=== PATIENT | male | born 1945 | race Caucasian/White ===

== ENCOUNTER 2016-12-02 16:34 | Observation (INO) | payer MEDICARE, MEDICAID ==
[2016-12-02 16:34] VITALS: BMI 107.6
[2016-12-02 17:41] LABS: BASO % 0.4 % (0.0-2.0); EOS # 0.2 K/uL (0.0-0.7); EOS % 2.4 % (0.0-4.0); HEMATOCRIT 41.6 % (35.0-51.0); LYMPH # 1.9 K/uL (1.0-4.3); LYMPH % 23.6 % (20.0-40.0); MEAN CELL VOLUME 93.9 fL (80.0-94.0); MEAN CORPUSCULAR HEMOGLOBIN 31.5 pg (27.0-31.0); MEAN CORPUSCULAR HGB CONC 33.5 g/dL (33.0-37.0); MEAN PLATELET VOLUME 8.6 fL (7.2-11.7); MONO # 0.8 K/uL (0.0-0.8); MONO % 9.9 % (0.0-10.0); RED CELL DISTRIBUTION WIDTH 13.4 % (11.5-14.5)
[2016-12-02 17:47] LABS: CHLORIDE 104 mmol/L (98-107)
[2016-12-02 17:49] LABS: INR 1.1; SODIUM 139 mmol/L (132-148)
[2016-12-02 17:51] LABS: ALB/GLOB RATIO 1.3 (1.0-2.1); ALKALINE PHOSPHATASE 76 U/L (38-126); ALT/SGPT 30 U/L (21-72); AST/SGOT 27 U/L (17-59); BILIRUBIN,TOTAL 0.8 mg/dL (0.2-1.3); BLOOD UREA NITROGEN 21 mg/dL (9-20); CARBON DIOXIDE 26 mmol/L (22-30); GFR AFRICAN-AMERICAN > 60; GLUCOSE,RANDOM 192 mg/dL (75-110); TOTAL PROTEIN 7.1 g/dL (6.3-8.3)
[2016-12-02 17:52] LABS: CALCIUM 8.5 mg/dl (8.6-10.4)
--- NOTE | 2016-12-02 18:29 | C.PDOC ---
History Of Present Illness Pt c/o left sided chest pain. Time Seen by Provider: 12/02/16 17:05 Chief Complaint (Nursing): Chest Pain History Per: Patient Onset/Duration Of Symptoms: Hrs (since this morning) Current Symptoms Are (Timing): Still Present Severity: Moderate Quality: "Pain" Associated Symptoms: Diaphoresis Modifying Factors: Other Indicated Below Alleviating Factors: None Nitro Therapy Administered: 3, Per Own Supply, Partial Relief Additional History Per: Prior Records Past Medical History Reviewed: Historical Data, Nursing Documentation, Vital Signs Vital Signs: Last Vital Signs Temp 97.9 F 12/02/16 16:36 Pulse 74 12/02/16 16:36 Resp 20 12/02/16 16:36 BP 110/55 L 12/02/16 16:36 Pulse Ox 96 12/02/16 16:36 - Medical History PMH: Anxiety, Benign Prostatic Hyperplasia, CAD, Depression, Gastritis, HTN, Hypercholesterolemia, Kidney Stones (1969), Chronic Kidney Disease Surgical History: Coronary Stent (5), Endoscopy - [facility] Procedures DRAINAGE OF DESCENDING COLON, ENDO, DIAGN (08/22/16) EXCISION OF STOMACH, ENDO, DIAGN (08/22/16) FLUOROSCOPY OF LEFT HEART USING LOW OSMOLAR CONTRAST (10/24/15) MEASURE OF CARDIAC SAMPL & PRESSURE, L HEART, PERC APPROACH (10/24/15) Family History: States: Unknown Family Hx - Social History Hx Tobacco Use: No Hx Alcohol Use: No Hx Substance Use: No - Immunization History Hx Tetanus Toxoid Vaccination: No Hx Influenza Vaccination: Yes Hx Pneumococcal Vaccination: No Review Of Systems Except As Marked, All Systems Reviewed And Found Negative. Constitutional: Positive for: Sweats. Negative for: Fever, Weakness Cardiovascular: Positive for: Chest Pain Respiratory: Negative for: Hemoptysis Gastrointestinal: Negative for: Nausea, Vomiting, Abdominal Pain Musculoskeletal: Negative for: Neck Pain, Back Pain, Leg Pain Skin: Negative for: Rash Neurological: Negative for: Weakness, Numbness, Seizures, Altered Mental Status Physical Exam - Physical Exam Appears: Non-toxic, No Acute Distress Skin: Normal Color, Warm, Dry, No Rash Head: Atraumatic, Normacephalic Eye(s): bilateral: PERRL, EOMI Neck: Normal ROM, Supple Cardiovascular: Rhythm Regular Respiratory: Normal Breath Sounds, No Accessory Muscle Use Gastrointestinal/Abdominal: Soft, No Tenderness Back: No CVA Tenderness Extremity: Normal ROM, No Pedal Edema, No Calf Tenderness Neurological/Psych: Oriented x3, Normal Motor, Normal Sensation ED Course And Treatment - Laboratory Results Result Diagrams: 12/02/16 17:37 12/02/16 17:37 Lab Interpretation: No Acute Changes ECG: Interpreted By Me, Viewed By Me ECG Rhythm: Sinus Rhythm, Nonspecific Changes ECG Interpretation: Abnormal Interpretation Of ECG: LVH with strain pattern. Rate From EC O2 Sat by Pulse Oximetry: 96 Pulse Ox Interpretation: Normal - Radiology CXR: Interpreted by Me, Viewed By Me CXR Interpretation: Yes: No Acute Disease Reassessment Condition: Improved Progress - Interventions Interventions:: Observation, Oxygen - Data Reviewed Data Reviewed: Lab, Diagnostic imaging, EKG, Old records - Patient Status Patient status: Mostly improved - Continuity of Care Discussed patient case with:: Patient, ED Nurse Disposition Discussed With : Alondra Lino Comment: He accepted pt on his service. Doctor Will See Patient In The: Hospital Counseled Patient/Family Regarding: Studies Performed, Diagnosis - Disposition Disposition: HOSPITALIZED Disposition Time: 18:30 Condition: FAIR - Clinical Impression Clinical Impression: Chest pain
[2016-12-03] MEDS: (Novolog) Insulin Aspart, Recombinant 100 u/ml 10 ml vial SC SCH ×5 (08:21→22:30)
--- NOTE | 2016-12-03 09:21 | RAD ---
PROCEDURE: CHEST RADIOGRAPH, 1 VIEW HISTORY: Chest pain COMPARISON: 08/19/2016. FINDINGS: LUNGS: The lungs are clear. PLEURA: No pneumothorax or pleural fluid seen. CARDIOVASCULAR: Normal. OSSEOUS STRUCTURES: No significant abnormalities. VISUALIZED UPPER ABDOMEN: Normal. OTHER FINDINGS: None. IMPRESSION: No active pulmonary disease.
[2016-12-03] MEDS: Enoxaparin 40 mg Syringe SC SCH (09:34)
--- NOTE | 2016-12-03 09:48 | CP.PCM.PN ---
Subjective - Date & Time of Evaluation Date of Evaluation: 12/03/16 Time of Evaluation: 09:25 - Subjective Subjective: PGY2 Medicine Note - Dr. Lino's service: Patient seen and examined at bedside this AM. Patient is a 71M with PMHx CAD with five stents, HTN, DM II, hyperlipidemia, BPH, and anxiety presented with chest pain last night. Patient says he constantly has this chest pain but it got worse yesterday. He says it is reproducible, left-sided chest pain since he had his first stent put in. Patient says he has been to [facility] 7 times since he was discharged from here in August for the same problem. Patient says he feels the first stent is blocked. I explained to him that his cardiac enzymes are normal so it is likely not his heart and that because it is reproducible it is likely inflammatory pain. Patient was upset that doctors keep blaming his pain on depression, anxiety, muscular pain or gastritis. Patient says he still gets acid reflux which makes this pain worse. Patient denies fever, chills, SOB , cough, abdominal pain, dysuria. Patient says he takes 20 units Novolog at breakfast and lunch, 22 units novolog at dinner and then a sliding scale of levemir at night time before bed. PMD: Dr Emiliano Lino PMHx, CAD with [address] Wills, HTN, DMII, hyperlipidemia, BPH, legally blind PSHx: hernia repair, stent placement Family hx: father of [place] in 70's Mother had DM, other members at [facility] Social hx: past smoker of 5 years, no ETOH or drug use, lives alone. Allergies: morphine, Lexapro Objective - Vital Signs/Intake and Output Vital Signs (last 24 hours): Temp Pulse Resp BP Pulse Ox 98.9 F 76 18 159/81 H 97 12/03/16 07:52 12/03/16 07:52 12/03/16 07:52 12/03/16 09:36 12/03/16 07:52 Intake and Output: 12/03/16 12/03/16 06:59 18:59 Intake Total 250 Balance 250 - Medications Medications: Current Medications Aspirin (Aspirin Chewable) 81 mg PO DAILY [facility] Last Admin: 12/03/16 09:35 Dose: 81 mg Clopidogrel Bisulfate (Plavix) 75 mg PO DAILY [facility] Last Admin: 12/03/16 09:34 Dose: 75 mg Enalapril Maleate (Vasotec) 20 mg PO DAILY [facility] Last Admin: 12/03/16 09:36 Dose: 20 mg Enoxaparin Sodium (Lovenox) 40 mg SC DAILY [facility] Last Admin: 12/03/16 09:34 Dose: 40 mg Finasteride (Proscar) 5 mg PO DAILY [facility] Last Admin: 12/03/16 09:35 Dose: 5 mg Insulin Aspart (Novolog) 0 unit SC ACHS [facility] PRN Reason: Protocol Last Admin: 12/03/16 08:21 Dose: 3 unit Insulin Aspart (Novolog) 20 unit SC ACBL [facility] Insulin Aspart (Novolog) 22 unit SC ACD [facility] Insulin Detemir (Levemir) 0 unit SC HS [facility] PRN Reason: Protocol Isosorbide Mononitrate (Imdur) 30 mg PO DAILY [facility] Last Admin: 12/03/16 09:35 Dose: 30 mg Metoprolol Tartrate (Lopressor) 25 mg PO Q12 [facility] Last Admin: 12/03/16 09:36 Dose: 25 mg Nitroglycerin (Nitrostat Sl Tab) 0.4 mg SL PRN PRN PRN Reason: angina Rosuvastatin Calcium (Crestor) 10 mg PO [facility] Last Admin: 12/03/16 00:47 Dose: 10 mg Zolpidem Tartrate (Ambien) 5 mg PO [facility] Last Admin: 12/03/16 00:47 Dose: 5 mg - Labs Labs: PT 12.5 SECONDS (9.7-12.2) H 12/02/16 17:37 INR 1.1 12/02/16 17:37 APTT 33 SECONDS (21-34) 12/02/16 17:37 - Constitutional Appears: Non-toxic, No Acute Distress - Head Exam Head Exam: NORMAL INSPECTION - Eye Exam Eye Exam: EOMI - ENT Exam ENT Exam: Mucous Membranes Moist - Respiratory Exam Respiratory Exam: Clear to Ausculation Bilateral, NORMAL BREATHING PATTERN. absent: Rales, Rhonchi, Wheezes - Cardiovascular Exam Cardiovascular Exam: REGULAR RHYTHM, +S1, +S2. absent: Gallop, Rubs, Murmur - GI/Abdominal Exam GI & Abdominal Exam: Soft, Normal Bowel Sounds. absent: Tenderness - Extremities Exam Extremities Exam: absent: Pedal Edema - Neurological Exam Neurological Exam: Alert, Awake, Oriented x3 - Psychiatric Exam Psychiatric exam: Anxious - Skin Skin Exam: Normal Color, Warm Assessment and Plan - Assessment and Plan (Free Text) Assessment: Chest pressure/pain Initial ROMIs negative x 2 Echo performed 08/19/16 showed moderately impaired left ventricular systolic function, mild to moderate hypokinesis in anteroseptal wall compatible with CAD , grade I abnormal relaxation pattern, elevated left atrial pressure and normal right systolic function. (please see full report) Previous dissection study showed no evidence of aortic aneurysm or PE. Nuclear stress test 08/21/16 showed fixed anteroseptal defect with no ischemia per prior charts EKG 12/02/16 - NSR at 65 bpm with LVH and repolarization abnormality CXR 12/02/16 - no acute pulmonary disease Cardiology consulted, Dr. Hollis, f/u recs Patient on telemetry Nitro Sl PRN for chest pain Toradol 30mg IVP once Ibuprofen 600mg PO TID F/U DELFINA CAD Continue Aspirin PO 81 mg daily Continue Lipitor 10mg PO daily Continue Plavix 75 mg PO daily Continue Crestor 10mg PO HS HTN Continue Lopressor 25 Mg PO BID and Enalapril 20 mg PO BID and Imdur 30mg PO daily [facility] Continue home dose of Levemir 40 U HS regular accuchecks insulin sliding scale protocol Anxiety Continue home Remeron 7.5 mg PO HS Continue home Ambien 5 mg PO HS Continue home Xanax 0.5 mg PO BID BPH Contine home Proscar 5mg PO daily Prophylactic measures Lovenox 40mg SC daily Protonix 40mg PO daily Management per Dr. Lino
--- NOTE | 2016-12-03 13:09 | HP ---
The patient is a 71-year-old man admitted to the hospital with chief complaint of weakness, fatigue, tiredness, chest pain, and not responding to nitroglycerin. The patient came to the Emergency Room, advised admission. The patient had history of coronary artery disease status post stent. The patien t has history of diabetes. The patient uses Levemir, NovoLog, nitroglycerin, Imdur. PHYSICAL EXAMINATION: GENERAL: Awake, alert, oriented. VITAL SIGNS: Temperature is 98, pulse 90. HEENT: Within normal limits. NECK: Supple. CHEST: Symmetrical. HEART: Regular. ABDOMEN: Soft. EXTREMITIES: No edema. The patient suffers from acute coronary syndrome. Place on bed rest, supportive care. Alondra Moreira MD cc: [id number] TT: 12/03/2016 11:22:42 12/03/2016 12:07:37
[2016-12-03] MEDS ORDERED: (Novolog) Insulin Aspart, Recombinant 100 u/ml 10 ml vial SC SCH (16:30)
[2016-12-03 17:34] VITALS: RESP 20
[2016-12-03] MEDS ORDERED: Insulin Detemir 100 units/ml Vial (Levemir) SC SCH ×2 (22:00)
[2016-12-04] MEDS: (Novolog) Insulin Aspart, Recombinant 100 u/ml 10 ml vial SC SCH ×4 (07:55→12:19)
[2016-12-04 08:54] VITALS: PULSE 74; TEMP 97.8; O2SAT 96
--- NOTE | 2016-12-04 10:09 | CP.PCM.CON ---
History of Present Illness - History of Present Illness History of Present Illness: The patient is a 71 year old man, known CAD. Pt had coronary stents by Dr Deluna, and last year admitted to [facility] 12/05. A nuclear stress was done that did not result in intervention. Pt had chest pain again 04/06: pt had two coronary stents in LCX branches. The patient was admitted her 09/05 with chest pain. A nuclear stress revealed only a fixed defect. CT and EGD revealed esophagitis. Pt was sitting at home (he lives alone) had chest pain, left sided, lasted three hours. He took several NTG without relief. Chest pain continued in the ambulance, and here at the hospital, and lasted for several hours. Chest pain resolved after he lay down and relaxed. Now he has a headache. Pt lives alone, has anxiety. One TNI is negative. ECg shows nsr mild non specific st changes. Review of Systems - Review of Systems All systems: reviewed and no additional remarkable complaints except (as above. otherwise negative) Past Patient History - Infectious Disease Hx of Infectious Diseases: None - Past Medical History & Family History Past Medical History?: Yes - Past Social History Smoking Status: Never Smoked - CARDIAC Hx Cardiac Disorders: Yes Hx Angina: Yes Hx Congestive Heart Failure: Yes Hx Heart Attack: Yes (x4) Hx Hypercholesterolemia: Yes Hx Hypertension: Yes - PULMONARY Hx Respiratory Disorders: No - NEUROLOGICAL Hx Neurological Disorder: Yes Hx Dizziness: Yes - HEENT 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 - RENAL Hx Chronic Kidney Disease: Yes Hx Kidney Stones: Yes (1968) - ENDOCRINE/METABOLIC Hx Endocrine Disorders: Yes Hx Diabetes Mellitus Type 2: Yes - HEMATOLOGICAL/ONCOLOGICAL Hx Blood Disorders: No - INTEGUMENTARY Hx Dermatological Problems: No - MUSCULOSKELETAL/RHEUMATOLOGICAL Hx Falls: No - GASTROINTESTINAL Hx Gastrointestinal Disorders: Yes Hx Gastritis: Yes Hx Ulcer: Yes - GENITOURINARY/GYNECOLOGICAL Hx Genitourinary Disorders: Yes Hx Prostate Problems: Yes - PSYCHIATRIC Hx Substance Use: No - SURGICAL HISTORY Hx Surgeries: Yes Hx Coronary Stent: Yes (5) Hx Herniorrhaphy: Yes (rt side) - ANESTHESIA Hx Anesthesia: Yes Hx Anesthesia Reactions: No Hx Malignant Hyperthermia: No Meds Allergies/Adverse Reactions: Allergies Allergy/AdvReac Type Severity Reaction Status Date / Time morphine Allergy Verified 12/02/16 16:39 escitalopram oxalate AdvReac Verified 12/02/16 16:39 [From Lexapro] - Medications Medications: Current Medications Aspirin (Aspirin Chewable) 81 mg PO DAILY [facility] Last Admin: 12/03/16 09:35 Dose: 81 mg Clopidogrel Bisulfate (Plavix) 75 mg PO DAILY [facility] Last Admin: 12/03/16 09:34 Dose: 75 mg Enalapril Maleate (Vasotec) 20 mg PO DAILY [facility] Last Admin: 12/03/16 09:36 Dose: 20 mg Enoxaparin Sodium (Lovenox) 40 mg SC DAILY [facility] Last Admin: 12/03/16 09:34 Dose: 40 mg Famotidine (Pepcid) 20 mg IVP Q12 [facility] Last Admin: 12/03/16 21:33 Dose: 20 mg Finasteride (Proscar) 5 mg PO DAILY [facility] Last Admin: 12/03/16 09:35 Dose: 5 mg Ibuprofen (Motrin Tab) 600 mg PO TID [facility] Last Admin: 12/03/16 21:33 Dose: 600 mg Insulin Aspart (Novolog) 0 unit SC ACHS [facility] PRN Reason: Protocol Last Admin: 12/04/16 07:55 Dose: 1 unit Insulin Aspart (Novolog) 20 unit SC ACBL [facility] Last Admin: 12/04/16 07:56 Dose: 20 unit Insulin Aspart (Novolog) 22 unit SC ACD [facility] Last Admin: 12/03/16 17:57 Dose: 22 unit Insulin Detemir (Levemir) 20 unit SC HS [facility] Last Admin: 12/03/16 21:47 Dose: 20 unit Isosorbide Mononitrate (Imdur) 30 mg PO DAILY [facility] Last Admin: 12/03/16 09:35 Dose: 30 mg Metoprolol Tartrate (Lopressor) 25 mg PO Q12 [facility] Last Admin: 12/03/16 21:39 Dose: 25 mg Nitroglycerin (Nitrostat Sl Tab) 0.4 mg SL PRN PRN PRN Reason: angina Rosuvastatin Calcium (Crestor) 10 mg PO HS [facility] Last Admin: 12/03/16 21:32 Dose: 10 mg Zolpidem Tartrate (Ambien) 5 mg PO HS [facility] Last Admin: 12/04/16 00:37 Dose: Not Given Physical Exam - Constitutional Appears: Well - Head Exam Head Exam: ATRAUMATIC - Eye Exam Eye Exam: EOMI - ENT Exam ENT Exam: Mucous Membranes Moist - Neck Exam Neck exam: Positive for: Normal Inspection - Respiratory Exam Respiratory Exam: Clear to Auscultation Bilateral - Cardiovascular Exam Cardiovascular Exam: REGULAR RHYTHM - GI/Abdominal Exam GI & Abdominal Exam: Normal Bowel Sounds - Rectal Exam Rectal Exam: NORMAL INSPECTION - Exam External exam: NORMAL EXTERNAL EXAM - Extremities Exam Extremities exam: Positive for: normal inspection - Back Exam Back exam: NORMAL INSPECTION - Neurological Exam Neurological exam: Alert, CN II-XII Intact, Oriented x3, Reflexes Normal - Psychiatric Exam Psychiatric exam: Normal Affect - Skin Skin Exam: Normal Color Results - Vital Signs Recent Vital Signs: Last Vital Signs Temp 97.8 F 12/04/16 08:52 Pulse 74 12/04/16 08:52 Resp 20 12/04/16 08:52 BP 134/54 L 12/04/16 08:52 Pulse Ox 96 12/04/16 08:52 - Labs Result Diagrams: 12/02/16 17:37 12/02/16 17:37 Labs: Laboratory Results - last 24 hr 12/03/16 12/03/16 12/03/16 09:25 11:42 16:36 POC Glucose (mg/dL) 329 H 166 H Troponin I, Quant < 0.0120 12/03/16 12/04/16 21:41 06:21 POC Glucose (mg/dL) 146 H 177 H Troponin I, Quant - EKG Data EKG Interpreted by: Myself (as above in hpi) Assessment & Plan - Assessment and Plan (Free Text) Assessment: 1. Although pt has cad, symptoms again are atypical, occrring at rest not nitro responseive and lasting over several hours. Will repeat tni. If negative, no intervention is advised at this time 2. As pt has esophagitis, no nsaids are recommended.
[2016-12-04] MEDS: Enoxaparin 40 mg Syringe SC SCH (10:41)
[2016-12-04 10:46] VITALS: BP 182/90
--- NOTE | 2016-12-04 11:06 | CP.PCM.PN ---
Subjective - Date & Time of Evaluation Date of Evaluation: 12/04/16 Time of Evaluation: 09:45 - Subjective Subjective: PGY2 Medicine Note - Dr. Lino's service: Patient seen and examined at bedside this AM. Patient says the chest pain is gone but he had a headache last night associated with dizziness. Patient denies fever, chills, chest pain, SOB, nausea, vomiting. Patient is out of bed walking around without an issue. Objective - Vital Signs/Intake and Output Vital Signs (last 24 hours): Temp Pulse Resp BP Pulse Ox 97.8 F 74 20 182/90 H 96 12/04/16 08:52 12/04/16 08:52 12/04/16 08:52 12/04/16 10:45 12/04/16 08:52 - Medications Medications: Current Medications Aspirin (Aspirin Chewable) 81 mg PO DAILY [facility] Last Admin: 12/04/16 10:42 Dose: 81 mg Clopidogrel Bisulfate (Plavix) 75 mg PO DAILY [facility] Last Admin: 12/04/16 10:42 Dose: 75 mg Enalapril Maleate (Vasotec) 20 mg PO DAILY [facility] Last Admin: 12/04/16 10:45 Dose: 20 mg Enoxaparin Sodium (Lovenox) 40 mg SC DAILY [facility] Last Admin: 12/04/16 10:41 Dose: 40 mg Famotidine (Pepcid) 20 mg IVP Q12 [facility] Last Admin: 12/04/16 10:42 Dose: 20 mg Finasteride (Proscar) 5 mg PO DAILY [facility] Last Admin: 12/04/16 10:42 Dose: 5 mg Insulin Aspart (Novolog) 0 unit SC ACHS [facility] PRN Reason: Protocol Last Admin: 12/04/16 07:55 Dose: 1 unit Insulin Aspart (Novolog) 20 unit SC ACBL [facility] Last Admin: 12/04/16 07:56 Dose: 20 unit Insulin Aspart (Novolog) 22 unit SC ACD [facility] Last Admin: 12/03/16 17:57 Dose: 22 unit Insulin Detemir (Levemir) 20 unit SC HS [facility] Last Admin: 12/03/16 21:47 Dose: 20 unit Isosorbide Mononitrate (Imdur) 30 mg PO DAILY [facility] Last Admin: 12/04/16 10:41 Dose: 30 mg Metoprolol Tartrate (Lopressor) 25 mg PO Q12 [facility] Last Admin: 12/04/16 10:45 Dose: 25 mg Nitroglycerin (Nitrostat Sl Tab) 0.4 mg SL PRN PRN PRN Reason: angina Rosuvastatin Calcium (Crestor) 10 mg PO [facility] Last Admin: 12/03/16 21:32 Dose: 10 mg Zolpidem Tartrate (Ambien) 5 mg PO [facility] Last Admin: 12/04/16 00:37 Dose: Not Given - Labs Labs: PT 12.5 SECONDS (9.7-12.2) H 12/02/16 17:37 INR 1.1 12/02/16 17:37 APTT 33 SECONDS (21-34) 12/02/16 17:37 - Constitutional Appears: Non-toxic, No Acute Distress - Head Exam Head Exam: NORMAL INSPECTION - Eye Exam Eye Exam: EOMI - ENT Exam ENT Exam: Mucous Membranes Moist - Respiratory Exam Respiratory Exam: Clear to Ausculation Bilateral, NORMAL BREATHING PATTERN. absent: Decreased Breath Sounds, Rhonchi, Wheezes - Cardiovascular Exam Cardiovascular Exam: REGULAR RHYTHM, +S1, +S2. absent: Gallop, Rubs, Murmur - GI/Abdominal Exam GI & Abdominal Exam: Soft, Normal Bowel Sounds. absent: Tenderness - Extremities Exam Extremities Exam: absent: Pedal Edema - Neurological Exam Neurological Exam: Alert, Awake, Oriented x3 - Psychiatric Exam Psychiatric exam: Normal Affect, Normal Mood - Skin Skin Exam: Normal Color, Warm Assessment and Plan - Assessment and Plan (Free Text) Assessment: Chest pressure/pain Initial ROMIs negative x 3 Echo performed 08/19/16 showed moderately impaired left ventricular systolic function, mild to moderate hypokinesis in anteroseptal wall compatible with CAD , grade I abnormal relaxation pattern, elevated left atrial pressure and normal right systolic function. (please see full report) Previous dissection study showed no evidence of aortic aneurysm or PE. Nuclear stress test 08/21/16 showed fixed anteroseptal defect with no ischemia per prior charts EKG 12/02/16 - NSR at 65 bpm with LVH and repolarization abnormality CXR 12/02/16 - no acute pulmonary disease Cardiology consulted, Dr. Hollis, f/u recs Patient on telemetry Nitro Sl PRN for chest pain Spoke with Dr. Wills about the patient at 11:05am. Dr. Wills says patient is okay to go home. However, Dr. Wills and his group no longer take [employer] which is the patient's insurance. 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 Patient will be given multiple assistant teacher referrals on discharge today so he can see if any of them take [employer]. CAD Continue Aspirin PO 81 mg daily Continue Lipitor 10mg PO daily Continue Plavix 75 mg PO daily Continue Crestor 10mg PO HS HTN Continue Lopressor 25 Mg PO BID and Enalapril 20 mg PO BID and Imdur 30mg PO daily DM Continue home dose of Levemir 40 U HS regular accuchecks insulin sliding scale protocol Anxiety Continue home Remeron 7.5 mg PO HS Continue home Ambien 5 mg PO HS Continue home Xanax 0.5 mg PO BID BPH Contine home Proscar 5mg PO daily Prophylactic measures Lovenox 40mg SC daily Protonix 40mg PO daily Management per Dr. Lino
[2016-12-04 11:42] LABS: BASO % 0.3 % (0.0-2.0); EOS # 0.2 K/uL (0.0-0.7); HEMATOCRIT 42.4 % (35.0-51.0); LYMPH # 1.8 K/uL (1.0-4.3); LYMPH % 24.2 % (20.0-40.0); MEAN CELL VOLUME 94.6 fL (80.0-94.0); MEAN CORPUSCULAR HEMOGLOBIN 32.3 pg (27.0-31.0); MEAN CORPUSCULAR HGB CONC 34.1 g/dL (33.0-37.0); MEAN PLATELET VOLUME 9.2 fL (7.2-11.7); MONO # 0.7 K/uL (0.0-0.8); MONO % 8.6 % (0.0-10.0); RED CELL DISTRIBUTION WIDTH 13.5 % (11.5-14.5); WHITE BLOOD COUNT 7.6 K/uL (4.8-10.8)
[2016-12-04 12:04] LABS: CHLORIDE 100 mmol/L (98-107); POTASSIUM 3.7 mmol/L (3.6-5.2); SODIUM 137 mmol/L (132-148)
[2016-12-04 12:06] LABS: BILIRUBIN,TOTAL 0.9 mg/dL (0.2-1.3); GFR AFRICAN-AMERICAN > 60
[2016-12-04 12:07] LABS: ALB/GLOB RATIO 1.6 (1.0-2.1); ALKALINE PHOSPHATASE 100 U/L (38-126); ALT/SGPT 35 U/L (21-72); AST/SGOT 28 U/L (17-59); BLOOD UREA NITROGEN 26 mg/dL (9-20); CALCIUM 8.9 mg/dl (8.6-10.4); CARBON DIOXIDE 23 mmol/L (22-30); GLUCOSE,RANDOM 270 mg/dL (75-110); TOTAL PROTEIN 7.7 g/dL (6.3-8.3)
== END 2016-12-04 16:00 | disposition home or self-care (01) ==
LOC: C.ER 16:34 → C.9E 18:30 → C.6T 20:03
PROVIDERS: ADMIT Internal Medicine Pulmonary Disease; ATTEND Internal Medicine Pulmonary Disease
DX: I25.10 Atherosclerotic heart disease of native coronary artery without angina pectoris (principal); I25.2 Old myocardial infarction; I50.9 Heart failure, unspecified; I13.0 Hypertensive heart and chronic kidney disease with heart failure and stage 1 through stage 4 chronic kidney disease, or unspecified chronic kidney disease; N40.0 Benign prostatic hyperplasia without lower urinary tract symptoms; Z95.5 Presence of coronary angioplasty implant and graft; H54.8 Legal blindness, as defined in USA; E78.5 Hyperlipidemia, unspecified; E11.22 Type 2 diabetes mellitus with diabetic chronic kidney disease; F41.9 Anxiety disorder, unspecified
CPT/HCPCS: 36415; 71010; 80053; 82948; 83880; 84484; 85025; 85610; 85730; 96374; 99285; G0378; J1650

== ENCOUNTER 2016-12-07 14:30 | Inpatient (IN) | payer MEDICARE, MEDICAID ==
[2016-12-07 14:31] VITALS: BMI 107.6
[2016-12-07] MEDS ORDERED: Heparin25000 units/250ml 1/2NS 250 ML IV STA (14:47)
--- NOTE | 2016-12-07 14:52 | C.PDOC ---
Time Seen by Provider: 12/07/16 14:44 Chief Complaint (Nursing): Chest Pain History Per: Patient Onset/Duration Of Symptoms: Hrs (2) Current Symptoms Are (Timing): Still Present Severity: Moderate Quality: Pressure Associated Symptoms: Diaphoresis Modifying Factors: Other Indicated Below Alleviating Factors: None Nitro Therapy Administered: 3, Per EMS, Per Own Supply, Partial Relief Additional History Per: Prior Records Past Medical History Reviewed: Historical Data, Nursing Documentation, Vital Signs Vital Signs: Last Vital Signs Temp 98.2 F 12/07/16 14:41 Pulse 67 12/07/16 14:41 Resp 20 12/07/16 14:41 BP 137/77 12/07/16 14:41 Pulse Ox 97 12/07/16 14:41 - Medical History PMH: Anxiety, Benign Prostatic Hyperplasia, CAD, CHF, Depression, Gastritis, HTN , Hypercholesterolemia, Kidney Stones (1969), Chronic Kidney Disease Surgical History: Coronary Stent (5), Endoscopy - [facility] Procedures DRAINAGE OF DESCENDING COLON, ENDO, DIAGN (08/22/16) EXCISION OF STOMACH, ENDO, DIAGN (08/22/16) FLUOROSCOPY OF LEFT HEART USING LOW OSMOLAR CONTRAST (10/24/15) MEASURE OF CARDIAC SAMPL & PRESSURE, L HEART, PERC APPROACH (10/24/15) Family History: States: Unknown Family Hx - Social History Hx Tobacco Use: No Hx Alcohol Use: No Hx Substance Use: No - Immunization History Hx Tetanus Toxoid Vaccination: No Hx Influenza Vaccination: Yes Hx Pneumococcal Vaccination: No Review Of Systems Except As Marked, All Systems Reviewed And Found Negative. Constitutional: Negative for: Fever Cardiovascular: Positive for: Chest Pain Respiratory: Negative for: Hemoptysis Gastrointestinal: Negative for: Vomiting, Abdominal Pain Musculoskeletal: Negative for: Neck Pain Neurological: Negative for: Weakness, Numbness, Seizures, Altered Mental Status Physical Exam - Physical Exam Appears: In Acute Distress Skin: Warm, Dry, Diaphoretic Head: Atraumatic, Normacephalic Eye(s): bilateral: PERRL, EOMI Neck: Normal ROM, Supple Cardiovascular: Rhythm Regular Respiratory: Normal Breath Sounds, No Accessory Muscle Use Gastrointestinal/Abdominal: Soft, No Tenderness Extremity: Normal ROM Neurological/Psych: Oriented x3, Normal Motor, Normal Sensation ED Course And Treatment ECG: Interpreted By Me, Viewed By Me ECG Rhythm: Sinus Rhythm, ST/T Changes (ST elevation in V1-V2. ST depression in interior/lateral leads), Nonspecific Changes ECG Interpretation: Abnormal Interpretation Of ECG: Q waves in septal leads. Rate From EC O2 Sat by Pulse Oximetry: 97 Pulse Ox Interpretation: Normal Progress Note: Code Heart was activated by me upon completion of the EKG. Disposition Discussed With Dr.: Jacquie Ríos Comment: He is coming in for the Code Heart. He requested given pt 180mg of Brillinta po and starting Heparin bolus and drip. Doctor Will See Patient In The: Hospital Counseled Patient/Family Regarding: Studies Performed, Diagnosis - Disposition Disposition: HOSPITALIZED Disposition Time: 14:54 Condition: SERIOUS - Clinical Impression Clinical Impression: STEMI (ST elevation myocardial infarction)
--- NOTE | 2016-12-07 15:01 | RAD ---
PROCEDURE: CHEST RADIOGRAPH, 1 VIEW HISTORY: Chest pain COMPARISON: 12/02/2016 FINDINGS: LUNGS: The lungs are clear. PLEURA: No pneumothorax or pleural fluid seen. CARDIOVASCULAR: Normal. OSSEOUS STRUCTURES: No significant abnormalities. VISUALIZED UPPER ABDOMEN: Normal. OTHER FINDINGS: None. IMPRESSION: No acute findings.
[2016-12-07 15:07] LABS: BASO % 0.4 % (0.0-2.0); EOS # 0.2 K/uL (0.0-0.7); EOS % 1.6 % (0.0-4.0); HEMATOCRIT 42.9 % (35.0-51.0); LYMPH # 1.7 K/uL (1.0-4.3); LYMPH % 17.4 % (20.0-40.0); MEAN CELL VOLUME 94.6 fL (80.0-94.0); MEAN CORPUSCULAR HEMOGLOBIN 31.7 pg (27.0-31.0); MEAN CORPUSCULAR HGB CONC 33.5 g/dL (33.0-37.0); MONO # 0.7 K/uL (0.0-0.8); MONO % 7.4 % (0.0-10.0); RED CELL DISTRIBUTION WIDTH 13.7 % (11.5-14.5); WHITE BLOOD COUNT 9.6 K/uL (4.8-10.8)
[2016-12-07 15:10] LABS: INR 1.1
[2016-12-07 15:12] LABS: CHLORIDE 105 mmol/L (98-107); POTASSIUM 3.9 mmol/L (3.6-5.2); SODIUM 141 mmol/L (132-148)
[2016-12-07 15:14] LABS: GFR AFRICAN-AMERICAN > 60
[2016-12-07 15:15] LABS: ALB/GLOB RATIO 1.4 (1.0-2.1); ALKALINE PHOSPHATASE 80 U/L (38-126); ALT/SGPT 28 U/L (21-72); AST/SGOT 23 U/L (17-59); BILIRUBIN,TOTAL 0.7 mg/dL (0.2-1.3); BLOOD UREA NITROGEN 21 mg/dL (9-20); CALCIUM 8.5 mg/dl (8.6-10.4); CARBON DIOXIDE 24 mmol/L (22-30); GLUCOSE,RANDOM 194 mg/dL (75-110); TOTAL PROTEIN 6.9 g/dL (6.3-8.3)
[2016-12-07] MEDS ORDERED: Heparin25000 units/250ml 1/2NS 25,000 UNITS/250 ML BAG IV STA (15:15)
[2016-12-07] MEDS ORDERED: Heparin 1,000 Units/500 ml NS IV ONE (15:15)
[2016-12-07] MEDS ORDERED: Midazolam 2 MG/2 ML VIAL ONE ×2 (15:33→15:36)
--- NOTE | 2016-12-07 15:54 | CP.PCM.CON ---
History of Present Illness - History of Present Illness History of Present Illness: Patient is a 71 year old male with PMH HTN, DM, CAD s/p multivessel PCI who presents with angina. The patient describes the onset of substernal chesrt pressure which occurred at rest. He states symptoms began suddenly and became worse. He was diaphoretic. The EKG revealed NSR with anteroseptal ST segment abnormalities consistent with myocardial infarction. Code heart was activated. Review of Systems - Constitutional Constitutional: absent: As Per HPI, Anorexia, Chills, Daytime Sleepiness, Excessive Sweating, Fatigue, Fever, Frequent Falls, Headache, Increased Appetite , Lethargy, Malaise, Night Sweats, Snoring, Sleep Apnea, Weight Gain, Weight Loss, Weakness, Other - EENT Eyes: absent: As Per HPI, Blind Spots, Blurred Vision, Change in Vision, Decreased Night Vision, Diplopia, Discharge, Dry Eye, Exophthalmos, Floaters, Irritation, Itchy Eyes, Loss of Peripheral Vision, Pain, Photophobia, Requires Corrective Lenses, Sees Flashes, Spots in Vision, Tunnel Vision, Other Visual Disturbances, Loss of Vision, Other Ears: absent: As Per HPI, Decreased Hearing, Ear Discharge, Ear Pain, Tinnitus, Abnormal Hearing, Disequilibrium, Dizziness, Other Nose/Mouth/Throat: absent: As Per HPI, Epistaxis, Nasal Congestion, Nasal Discharge, Nasal Obstruction, Nasal Trauma, Nose Pain, Post Nasal Drip, Sinus Pain, Sinus Pressure, Bleeding Gums, Change in Voice, Dental Pain, Dry Mouth, Dysphagia, Halitosis, Hoarsness, Lip Swelling, Mouth Lesions, Mouth Pain, Odynophagia, Sore Throat, Throat Swelling, Tongue Swelling, Facial Pain, Neck Pain, Neck Mass, Other - Cardiovascular Cardiovascular: Chest Pain at Rest, Diaphoresis, Dyspnea - Respiratory Respiratory: Dyspnea - Gastrointestinal Gastrointestinal: absent: As Per HPI, Abdominal Pain, Belching, Bloating, Change in Bowel Habits, Change in Stool Character, Coffee Ground Emesis, Constipation, Cramping, Diarrhea, Dyspepsia, Dysphagia, Early Satiety, Excessive Flatus, Fecal Incontinence, Heartburn, Hematemesis, Hematochezia, Loose Stools, Melena, Nausea, Odynophagia, Temesmus, Vomiting, Other - Genitourinary Genitourinary: absent: As Per HPI, Change in Urinary Stream, Difficulty Urinating, Dysuria, Flank Pain, Hematuria, Pyuria, Nocturia, Urinary Incontinence, Urinary Frequency, Urinary Hesitance, Urinary Urgency, Voiding Freq/Small Amts, Freq UTI, Hx Renal/Bladder Calculi, Hx /Renal Surgery, Bladder Distension, Other - Musculoskeletal Musculoskeletal: absent: As Per HPI, Abnormal Gait, Arthralgias, Atrophy, Back Pain, Deformity, Joint Swelling, Limited Range of Motion, Loss of Height, Muscle Cramps, Muscle Weakness, Myalgias, Neck Pain, Numbness, Radiating Pain into Limb, Stiffness, Tingling, Other - Integumentary Integumentary: absent: As Per HPI, Acne, Alopecia, Bleeding Lesions, Change in Hair, Change in Nails, Change in Pigmentation, Changing Lesions, Dry Skin, Erythema, Furuncle, Hirsutism, Lesions, New Lesions, Non-Healing Lesions, Photosensitivity, Pruritus, Rash, Skin Pain, Skin Ulcer, Sores, Striae, Swelling , Unusual Bruising, Wounds, Jaundice, Other - Neurological Neurological: absent: As Per HPI, Abnormal Gait, Abnormal Hearing, Abnormal Movements, Abnormal Speech, Behavioral Changes, Burning Sensations, Confusion, Convulsions, Disequilibrium, Dizziness, Numbness, Focal Weakness, Frequent Falls , Headaches, Lack of Coordination, Loss of Vision, Memory Loss, Paresthesias, Radicular Pain, Restless Legs, Sensory Deficit, Syncope, Tingling, Tremor, Vertigo, Weakness, Other Visual Disturbances, Other - Psychiatric Psychiatric: absent: As Per HPI, Abnormal Sleep Pattern, Anhedonia, Anxiety, Auditory Hallucinations, Behavioral Changes, Change in Appetite, Change in Libido, Confusion, Depression, Difficulty Concentrating, Hallucinations, Homicidal Ideation, Hopelessness, Irritability, Memory Loss, Mood Swings, Panic Attacks, Paranoia, Suicidal Ideation, Visual Hallucinations, Tactile Hallucinations, Other - Endocrine Endocrine: absent: As Per HPI, Change in Body Appearance, Change in Libido, Cold Intolorance, Deepening of Voice, Excessive Sweating, Fatigue, Flushing, Heat Intolorance, Increase in Ring/Shoe/Hat Size, Palpitations, Polydipsia, Polyphagia, Polyuria, Other - Hematologic/Lymphatic Hematologic: absent: As Per HPI, Easy Bleeding, Easy Bruising, Lymphadenopathy, Other Past Patient History - Infectious Disease Hx of Infectious Diseases: None - Past Medical History & Family History Past Medical History?: Yes - Past Social History Smoking Status: Never Smoked - CARDIAC Hx Congestive Heart Failure: Yes Hx Hypercholesterolemia: Yes Hx Hypertension: Yes - PULMONARY Hx Respiratory Disorders: No - NEUROLOGICAL Hx Neurological Disorder: Yes Hx Dizziness: Yes - HEENT 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 - RENAL Hx Chronic Kidney Disease: Yes Hx Kidney Stones: Yes (1968) - ENDOCRINE/METABOLIC Hx Endocrine Disorders: Yes Hx Diabetes Mellitus Type 2: Yes - HEMATOLOGICAL/ONCOLOGICAL Hx Blood Disorders: No - INTEGUMENTARY Hx Dermatological Problems: No - MUSCULOSKELETAL/RHEUMATOLOGICAL Hx Falls: No - GASTROINTESTINAL Hx Gastritis: Yes - GENITOURINARY/GYNECOLOGICAL Hx Genitourinary Disorders: Yes Hx Prostate Problems: Yes - PSYCHIATRIC Hx Anxiety: Yes Hx Depression: Yes Hx Substance Use: No - SURGICAL HISTORY Hx Coronary Stent: Yes (5) - ANESTHESIA Hx Anesthesia: Yes Hx Anesthesia Reactions: No Hx Malignant Hyperthermia: No Meds Allergies/Adverse Reactions: Allergies Allergy/AdvReac Type Severity Reaction Status Date / Time morphine Allergy Verified 12/02/16 16:39 escitalopram oxalate AdvReac Verified 12/07/16 14:47 [From Lexapro] - Medications Medications: Current Medications Acetaminophen (Tylenol 325mg Tab) 650 mg PO Q6 PRN PRN Reason: pain Clopidogrel Bisulfate (Plavix) 75 mg PO DAILY [facility] Heparin Sodium/Sodium Chloride (Heparin 75807 Units/250ml 1/2 Normal Saline) 25 ,000 units in 250 mls @ 10 mls/hr IV STAT STA PRN Reason: Protocol Stop: 12/08/16 16:14 Sodium Chloride (Sodium Chloride 0.9%) 1,000 mls @ 100 mls/hr IV .Q10H [facility] Stop: 12/07/16 19:00 Losartan Potassium (Cozaar) 25 mg PO DAILY [facility] Metoprolol Succinate (Toprol Xl) 25 mg PO DAILY [facility] Physical Exam - Constitutional Appears: Non-toxic - Head Exam Head Exam: NORMAL INSPECTION - Eye Exam Eye Exam: Normal appearance - ENT Exam ENT Exam: Mucous Membranes Moist - Neck Exam Neck exam: Positive for: Full Rom - Respiratory Exam Respiratory Exam: NORMAL BREATHING PATTERN - Cardiovascular Exam Cardiovascular Exam: REGULAR RHYTHM - GI/Abdominal Exam GI & Abdominal Exam: Normal Bowel Sounds - Rectal Exam Rectal Exam: Deferred - Extremities Exam Extremities exam: Negative for: pedal edema - Back Exam Back exam: NORMAL INSPECTION - Neurological Exam Neurological exam: Alert, Oriented x3 - Psychiatric Exam Psychiatric exam: Normal Affect - Skin Skin Exam: Normal Color Results - Vital Signs Recent Vital Signs: Last Vital Signs Temp 97.8 F 12/07/16 15:09 Pulse 75 12/07/16 15:09 Resp 17 12/07/16 15:09 BP 153/76 H 12/07/16 15:09 Pulse Ox 99 12/07/16 15:09 - Labs Result Diagrams: 12/07/16 14:56 12/07/16 14:56 - EKG Data EKG Interpreted by: Myself EKG shows normal: Sinus rhythm Assessment & Plan (1) STEMI (ST elevation myocardial infarction) Assessment and Plan: patient has a history of multivessel PCI, given symptoms and EKG abnormalities , the patient will require immediate cardiac catheterization. Patient is agreeable. Status: Acute (2) CAD (coronary artery disease) Assessment and Plan: loaded with Brilinta. Status: Acute (3) Diabetes mellitus Assessment and Plan: risk factor for CAD Status: Acute (4) HTN (hypertension) Assessment and Plan: will monitor pot procedure Status: Acute
[2016-12-07] MEDS ORDERED: Sodium Chloride 0.9% 1,000 ML IV SCH (16:00)
[2016-12-07] MEDS ORDERED: Metoprolol Succinate 25 mg XL Tab PO SCH (16:00)
--- NOTE | 2016-12-07 16:00 | CP.PCM.PN ---
Subjective - Date & Time of Evaluation Date of Evaluation: 12/07/16 Time of Evaluation: 15:55 - Subjective Subjective: cardaic cath performed. Patent stents in LAD, LCx, mid RCA RPDA 30% in stent OM1 95%(small vessel) RPL 95% proximal (small vessel) LV: 50%. Plan: medical therapy Consider addition of Ranexa 500 mg BID. Objective - Vital Signs/Intake and Output Vital Signs (last 24 hours): Temp Pulse Resp BP Pulse Ox 97.8 F 75 17 153/76 H 99 12/07/16 15:09 12/07/16 15:09 12/07/16 15:09 12/07/16 15:09 12/07/16 15:09 - Medications Medications: Current Medications Acetaminophen (Tylenol 325mg Tab) 650 mg PO Q6 PRN PRN Reason: pain Clopidogrel Bisulfate (Plavix) 75 mg PO DAILY [facility] Heparin Sodium/Sodium Chloride (Heparin 71135 Units/250ml 1/2 Normal Saline) 25 ,000 units in 250 mls @ 10 mls/hr IV STAT STA PRN Reason: Protocol Stop: 12/08/16 16:14 Sodium Chloride (Sodium Chloride 0.9%) 1,000 mls @ 100 mls/hr IV .Q10H [facility] Stop: 12/07/16 19:00 Losartan Potassium (Cozaar) 25 mg PO DAILY [facility] Metoprolol Succinate (Toprol Xl) 25 mg PO DAILY [facility] - Labs Labs: PT 12.1 SECONDS (9.7-12.2) 12/07/16 14:56 INR 1.1 12/07/16 14:56 APTT 34 SECONDS (21-34) 12/07/16 14:56
--- NOTE | 2016-12-07 18:04 | CP.PCM.CON ---
History of Present Illness - History of Present Illness History of Present Illness: Consultation ICU 71-year-old male with history of multiple heart disease, multiple stents in the past, had diabetes, hypertension, smoker in the past, came to the emergency room with symptoms of acute chest pain. In the emergency room patient was noted to have EKG changes with the ST elevation in the anterior leads, and the depressions in the lateral leads. Immediate code heart was called. , Patient was taken to the emergency room, to the Email Marketing Executive. Patient underwent angiogram. Spoke to the plastic mould maker. Patient has stents in the LAD, left circumflex, mid RCA. RPDA 30% stenosis noted. Small vessel severe stenosis noted. LV function is 50%. Right was considered to have medical management at this time. Past medical history: Hypertension diabetes hypercholesterolemia Allergy: No known drug allergy Personal history: Smoker. Denies any alcohol no drug abuse Patient is being followed with PMD, cardiology. Patient is complaint with medication. Vital signs reviewed No neck vein distention noted Chest good air entry bilaterally, no wheezing or rales noted CVS regular heart sound, no murmur noted Abdomen soft, nontender. 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 Blood pressure stable. Medications reviewed Labs reviewed Assessment and recommendation: 71-year-old male with history of diabetes hypertension CAD status post a stent admitted to the hospital with acute chest pain. Multiple CAD noted. Medical treatment. Patient is asymptomatic at this time. We'll continue to monitor. Antiplatelets, beta nba. 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 - RENAL Hx Chronic Kidney Disease: Yes Hx Kidney Stones: Yes (1968) - ENDOCRINE/METABOLIC Hx Endocrine Disorders: Yes Hx Diabetes Mellitus Type 2: Yes - HEMATOLOGICAL/ONCOLOGICAL Hx Blood Disorders: No - INTEGUMENTARY Hx Dermatological Problems: No - MUSCULOSKELETAL/RHEUMATOLOGICAL Hx Falls: No - GASTROINTESTINAL Hx Gastritis: Yes - GENITOURINARY/GYNECOLOGICAL Hx Genitourinary Disorders: Yes Hx Prostate Problems: Yes - PSYCHIATRIC Hx Anxiety: Yes Hx Depression: Yes Hx Substance Use: No - SURGICAL HISTORY Hx Coronary Stent: Yes (5) - ANESTHESIA Hx Anesthesia: Yes Hx Anesthesia Reactions: No Hx Malignant Hyperthermia: No Has any member of the family had a problem w/ anesthesia?: No Meds Allergies/Adverse Reactions: Allergies Allergy/AdvReac Type Severity Reaction Status Date / Time morphine Allergy Verified 12/02/16 16:39 escitalopram oxalate AdvReac Verified 12/07/16 14:47 [From Lexapro] - Medications Medications: Current Medications Acetaminophen (Tylenol 325mg Tab) 650 mg PO Q6 PRN PRN Reason: pain Clopidogrel Bisulfate (Plavix) 75 mg PO DAILY [facility] Sodium Chloride (Sodium Chloride 0.9%) 1,000 mls @ 100 mls/hr IV .Q10H [facility] Stop: 12/07/16 19:00 Losartan Potassium (Cozaar) 25 mg PO DAILY [facility] Metoprolol Succinate (Toprol Xl) 25 mg PO DAILY [facility] Last Admin: 12/07/16 17:41 Dose: Not Given Results - Vital Signs Recent Vital Signs: Last Vital Signs Temp 97.6 F 12/07/16 15:47 Pulse 72 12/07/16 16:31 Resp 18 12/07/16 16:36 BP 136/73 12/07/16 16:31 Pulse Ox 98 12/07/16 16:31 - Labs Result Diagrams: 12/07/16 14:56 12/07/16 14:56 Labs: Laboratory Results - last 24 hr 12/07/16 12/07/16 14:57 16:16 POC Glucose (mg/dL) 219 H Blood Type O POSITIVE Antibody Screen Negative
[2016-12-07] MEDS: Insulin Detemir 100 units/ml Vial (Levemir) SC SCH (21:23)
[2016-12-07] MEDS: (Novolin R) Insulin Human Regular 100 units/ml vial SC SCH (21:56)
[2016-12-08 06:36] LABS: BASO % 0.3 % (0.0-2.0); EOS # 0.2 K/uL (0.0-0.7); EOS % 2.4 % (0.0-4.0); HEMATOCRIT 40.2 % (35.0-51.0); LYMPH # 1.5 K/uL (1.0-4.3); LYMPH % 20.5 % (20.0-40.0); MEAN CELL VOLUME 94.6 fL (80.0-94.0); MEAN CORPUSCULAR HEMOGLOBIN 32.2 pg (27.0-31.0); MEAN CORPUSCULAR HGB CONC 34.1 g/dL (33.0-37.0); MEAN PLATELET VOLUME 9.2 fL (7.2-11.7); MONO # 0.7 K/uL (0.0-0.8); NRBC % 0.1 % (0.0-2.0); RED CELL DISTRIBUTION WIDTH 13.3 % (11.5-14.5); WHITE BLOOD COUNT 7.4 K/uL (4.8-10.8)
[2016-12-08 06:50] LABS: CHLORIDE 102 mmol/L (98-107); POTASSIUM 3.6 mmol/L (3.6-5.2); SODIUM 136 mmol/L (132-148)
[2016-12-08 06:52] LABS: ALB/GLOB RATIO 1.3 (1.0-2.1); ALKALINE PHOSPHATASE 79 U/L (38-126); ALT/SGPT 32 U/L (21-72); AST/SGOT 29 U/L (17-59); BILIRUBIN,TOTAL 0.8 mg/dL (0.2-1.3); BLOOD UREA NITROGEN 18 mg/dL (9-20); CARBON DIOXIDE 24 mmol/L (22-30); GFR AFRICAN-AMERICAN > 60; TOTAL PROTEIN 6.1 g/dL (6.3-8.3)
[2016-12-08 06:53] LABS: CALCIUM 7.8 mg/dl (8.6-10.4); GLUCOSE,RANDOM 196 mg/dL (75-110); MAGNESIUM 1.7 mg/dL (1.6-2.3); PHOSPHOROUS 2.5 mg/dL (2.5-4.5)
[2016-12-08] MEDS: (Novolin R) Insulin Human Regular 100 units/ml vial SC SCH ×4 (08:25→23:22)
--- NOTE | 2016-12-08 08:51 | CP.CCUPN ---
CCU Subjective - Physician Review Events Since Last Encounter (Free Text): 12/08/16 08:49 Still having on and off chest pain, but the feeling better now. Clinically stable yesterday and today. No arrhythmias identified. Elevation of the blood pressure noted CCU Objective - Vital Signs / Intake & Output Vital Signs (Last 4 hours): Vital Signs Temp Pulse Resp BP Pulse Ox 12/08/16 08:31 86 11 L 138/105 H 96 12/08/16 08:15 71 16 136/66 96 12/08/16 08:01 74 17 127/68 96 12/08/16 08:00 97.9 F 72 14 96 12/08/16 07:31 84 19 129/72 94 L 12/08/16 07:16 83 15 137/71 96 12/08/16 07:00 76 14 158/74 H 96 12/08/16 06:00 67 14 155/58 H 98 12/08/16 05:46 69 15 127/73 95 12/08/16 05:30 74 13 148/68 96 12/08/16 05:16 74 14 168/87 H 97 12/08/16 05:01 64 13 143/48 L 98 12/08/16 05:00 64 16 95 Intake and Output (Last 8hrs): Intake & Output 12/07/16 12/08/16 12/08/16 22:59 06:59 14:59 Intake Total 1200 840 Output Total 620 400 Balance 580 440 Weight 145 lb Intake: Intake, IV Amount 600 400 Right Forearm 600 400 Oral 600 440 Output: Urine 620 400 Urine, Voided 620 400 Other: Voiding Method Toilet # Bowel Movements 1 - Physical Exam Narrative Physical Exam (Free Text): 12/08/16 08:50 Vital signs reviewed No neck vein distention noted Chest good air entry bilaterally, no wheezing or rales noted CVS regular heart sound, no murmur noted Abdomen soft, nontender. 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 3, no functional neurological deficit - Medications Active Medications: Active Medications Generic Name Dose Route Start Last Admin Trade Name Freq PRN Reason Stop Dose Admin Acetaminophen 650 mg 12/07/16 15:46 Tylenol 325mg Tab PO Q6 PRN pain Clopidogrel Bisulfate 75 mg 12/08/16 10:00 Plavix PO DAILY [facility] Enalapril Maleate 5 mg 12/08/16 10:00 Vasotec PO DAILY [facility] Insulin Detemir 40 unit 12/07/16 22:00 12/07/16 21:23 Levemir SC 40 unit HS JULIET Administration Insulin Human Regular 0 unit 12/07/16 22:00 12/08/16 08:25 Novolin R SC 1 unit ACHS JULIET Administration Protocol Isosorbide Mononitrate 30 mg 12/07/16 18:04 12/08/16 08:26 Imdur PO 30 mg DAILY PRN Administration chest pain Losartan Potassium 25 mg 12/08/16 10:00 Cozaar PO DAILY [facility] Metoprolol Succinate 25 mg 12/07/16 16:00 12/07/16 17:41 Toprol Xl PO Not Given DAILY [facility] Nitroglycerin 0.4 mg 12/07/16 19:44 12/08/16 07:10 Nitrostat Sl Tab SL 0.4 mg Q5M PRN Administration chest pain Rosuvastatin Calcium 10 mg 12/07/16 22:00 12/07/16 21:23 Crestor PO 10 mg HS JULIET Administration Zolpidem Tartrate 5 mg 12/07/16 19:44 12/07/16 23:27 Ambien PO 5 mg HS PRN Administration Insomnia - Patient Studies Lab Studies: Lab Studies 12/08/16 12/08/16 12/08/16 Range/Units 07:30 06:24 06:24 WBC 7.4 (4.8-10.8) K/uL RBC 4.25 L (4.40-5.90) Mil/uL Hgb 13.7 (12.0-18.0) g/dL Hct 40.2 (35.0-51.0) % MCV 94.6 H (80.0-94.0) fL MCH 32.2 H (27.0-31.0) pg MCHC 34.1 (33.0-37.0) g/dL RDW 13.3 (11.5-14.5) % Plt Count 159 (130-400) K/uL MPV 9.2 (7.2-11.7) fL Neut % (Auto) 66.8 (50.0-75.0) % Lymph % (Auto) 20.5 (20.0-40.0) % Armstrong % (Auto) 10.0 (0.0-10.0) % Eos % (Auto) 2.4 (0.0-4.0) % Baso % (Auto) 0.3 (0.0-2.0) % Neut # 4.9 (1.8-7.0) K/uL Lymph # 1.5 (1.0-4.3) K/uL Armstrong # 0.7 (0.0-0.8) K/uL Eos # 0.2 (0.0-0.7) K/uL Baso # 0.0 (0.0-0.2) K/uL Sodium 136 (132-148) mmol/L Potassium 3.6 (3.6-5.2) mmol/L Chloride 102 (98-107) mmol/L Carbon Dioxide 24 (22-30) mmol/L Anion Gap 14 (10-20) BUN 18 (9-20) mg/dL Creatinine 0.7 L (0.8-1.5) MG/DL Est GFR ( Amer) > 60 Est GFR (Non-Af Amer) > 60 POC Glucose (mg/dL) 182 H (65-110) mg/dL Random Glucose 196 H (75-110) mg/dL Calcium 7.8 L (8.6-10.4) mg/dl Phosphorus 2.5 (2.5-4.5) mg/dL Magnesium 1.7 (1.6-2.3) mg/dL Total Bilirubin 0.8 (0.2-1.3) mg/dL AST 29 (17-59) U/L ALT 32 (21-72) U/L Alkaline Phosphatase 79 (38-126) U/L Total Protein 6.1 L (6.3-8.3) g/dL Albumin 3.5 (3.5-5.0) g/dL Globulin 2.7 (2.2-3.9) gm/dL Albumin/Globulin Ratio 1.3 (1.0-2.1) Blood Type Antibody Screen 12/07/16 12/07/16 12/07/16 Range/Units 21:54 16:16 14:57 WBC (4.8-10.8) K/uL RBC (4.40-5.90) Mil/uL Hgb (12.0-18.0) g/dL Hct (35.0-51.0) % MCV (80.0-94.0) fL MCH (27.0-31.0) pg MCHC (33.0-37.0) g/dL RDW (11.5-14.5) % Plt Count (130-400) K/uL MPV (7.2-11.7) fL Neut % (Auto) (50.0-75.0) % Lymph % (Auto) (20.0-40.0) % Armstrong % (Auto) (0.0-10.0) % Eos % (Auto) (0.0-4.0) % Baso % (Auto) (0.0-2.0) % Neut # (1.8-7.0) K/uL Lymph # (1.0-4.3) K/uL Armstrong # (0.0-0.8) K/uL Eos # (0.0-0.7) K/uL Baso # (0.0-0.2) K/uL Sodium (132-148) mmol/L Potassium (3.6-5.2) mmol/L Chloride (98-107) mmol/L Carbon Dioxide (22-30) mmol/L Anion Gap (10-20) BUN (9-20) mg/dL Creatinine (0.8-1.5) MG/DL Est GFR ( Amer) Est GFR (Non-Af Amer) POC Glucose (mg/dL) 216 H 219 H (65-110) mg/dL Random Glucose (75-110) mg/dL Calcium (8.6-10.4) mg/dl Phosphorus (2.5-4.5) mg/dL Magnesium (1.6-2.3) mg/dL Total Bilirubin (0.2-1.3) mg/dL AST (17-59) U/L ALT (21-72) U/L Alkaline Phosphatase (38-126) U/L Total Protein (6.3-8.3) g/dL Albumin (3.5-5.0) g/dL Globulin (2.2-3.9) gm/dL Albumin/Globulin Ratio (1.0-2.1) Blood Type O POSITIVE Antibody Screen Negative Laboratory Results - last 24 hr 06/18/17 06/18/17 06/18/17 14:57 16:16 21:54 WBC RBC Hgb Hct MCV MCH MCHC RDW Plt Count MPV Neut % (Auto) Lymph % (Auto) Armstrong % (Auto) Eos % (Auto) Baso % (Auto) Neut # Lymph # Armstrong # Eos # Baso # Sodium Potassium Chloride Carbon Dioxide Anion Gap BUN Creatinine Est GFR ( Amer) Est GFR (Non-Af Amer) POC Glucose (mg/dL) 219 H 216 H Random Glucose Calcium Phosphorus Magnesium Total Bilirubin AST ALT Alkaline Phosphatase Total Protein Albumin Globulin Albumin/Globulin Ratio Blood Type O POSITIVE Antibody Screen Negative 12/08/16 12/08/16 12/08/16 06:24 06:24 07:30 WBC 7.4 RBC 4.25 L Hgb 13.7 Hct 40.2 MCV 94.6 H MCH 32.2 H MCHC 34.1 RDW 13.3 Plt Count 159 MPV 9.2 Neut % (Auto) 66.8 Lymph % (Auto) 20.5 Armstrong % (Auto) 10.0 Eos % (Auto) 2.4 Baso % (Auto) 0.3 Neut # 4.9 Lymph # 1.5 Armstrong # 0.7 Eos # 0.2 Baso # 0.0 Sodium 136 Potassium 3.6 Chloride 102 Carbon Dioxide 24 Anion Gap 14 BUN 18 Creatinine 0.7 L Est GFR ( Amer) > 60 Est GFR (Non-Af Amer) > 60 POC Glucose (mg/dL) 182 H Random Glucose 196 H Calcium 7.8 L Phosphorus 2.5 Magnesium 1.7 Total Bilirubin 0.8 AST 29 ALT 32 Alkaline Phosphatase 79 Total Protein 6.1 L Albumin 3.5 Globulin 2.7 Albumin/Globulin Ratio 1.3 Blood Type Antibody Screen Fingerstick Blood Sugar Results: 182 Critical Care Progress Note - Nutrition Nutrition: Nutrition Category Date Time Status Heart Healthy Diet [DIET] Diets 12/07/16 Dinner Active Assessment/Plan - Assessment and Plan (Free Text) Assessment: patient with diabetes, hypertension, hypercholesterolemia, multiple CAD status post a stent. Admitted with the chest pain, EKG changes. Status post angiogram. Multiple diseases, and the blockages identified, medical treatment needed. Stable. Transfer to floor.
--- NOTE | 2016-12-08 09:36 | CP.PCM.CON ---
History of Present Illness - History of Present Illness History of Present Illness: The pt is a 71 year old man with cad. he had coronary stents in the recent past , on DPT, but subsequently has had two at least two admissions for recurrent chest pain and normal tni. Chest pains have been very atypical, lasting more than a day, not relived by ntg, and at rest. pt called 911 again and a cardiac cath was performed, revealing patent stents and no significant CAD. EF is low normal. Recent nuclear stress tests revealed fixed defects. 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 - RENAL Hx Chronic Kidney Disease: Yes Hx Kidney Stones: Yes (1968) - ENDOCRINE/METABOLIC Hx Endocrine Disorders: Yes Hx Diabetes Mellitus Type 2: Yes - HEMATOLOGICAL/ONCOLOGICAL Hx Blood Disorders: No - INTEGUMENTARY Hx Dermatological Problems: No - MUSCULOSKELETAL/RHEUMATOLOGICAL Hx Falls: No - GASTROINTESTINAL Hx Gastritis: Yes - GENITOURINARY/GYNECOLOGICAL Hx Genitourinary Disorders: Yes Hx Prostate Problems: Yes - PSYCHIATRIC Hx Anxiety: Yes Hx Depression: Yes Hx Substance Use: No - SURGICAL HISTORY Hx Coronary Stent: Yes () - ANESTHESIA Hx Anesthesia: Yes Hx Anesthesia Reactions: No Hx Malignant Hyperthermia: No Meds Allergies/Adverse Reactions: Allergies Allergy/AdvReac Type Severity Reaction Status Date / Time morphine Allergy Verified 12/02/16 16:39 escitalopram oxalate AdvReac Verified 12/07/16 14:47 [From Lexapro] - Medications Medications: Current Medications Acetaminophen (Tylenol 325mg Tab) 650 mg PO Q6 PRN PRN Reason: pain Clopidogrel Bisulfate (Plavix) 75 mg PO DAILY [facility] Insulin Detemir (Levemir) 40 unit SC HS [facility] Last Admin: 12/07/16 21:23 Dose: 40 unit Insulin Human Regular (Novolin R) 0 unit SC ACHS [facility] PRN Reason: Protocol Last Admin: 12/08/16 08:25 Dose: 1 unit Isosorbide Mononitrate (Imdur) 30 mg PO DAILY PRN PRN Reason: chest pain Last Admin: 12/08/16 08:26 Dose: 30 mg Losartan Potassium (Cozaar) 50 mg PO DAILY [facility] Metoprolol Succinate (Toprol Xl) 50 mg PO DAILY [facility] Nitroglycerin (Nitrostat Sl Tab) 0.4 mg SL Q5M PRN PRN Reason: chest pain Last Admin: 12/08/16 07:10 Dose: 0.4 mg Rosuvastatin Calcium (Crestor) 10 mg PO HS [facility] Last Admin: 12/07/16 21:23 Dose: 10 mg Zolpidem Tartrate (Ambien) 5 mg PO HS PRN PRN Reason: Insomnia Last Admin: 12/07/16 23:27 Dose: 5 mg Physical Exam - Head Exam Head Exam: ATRAUMATIC - Eye Exam Eye Exam: EOMI Pupil Exam: NORMAL ACCOMODATION - ENT Exam ENT Exam: Mucous Membranes Moist - Neck Exam Neck exam: Positive for: Normal Inspection - Respiratory Exam Respiratory Exam: Clear to Auscultation Bilateral - Cardiovascular Exam Cardiovascular Exam: REGULAR RHYTHM - GI/Abdominal Exam GI & Abdominal Exam: Normal Bowel Sounds - Exam External exam: NORMAL EXTERNAL EXAM - Extremities Exam Extremities exam: Positive for: normal inspection - Back Exam Back exam: NORMAL INSPECTION - Neurological Exam Neurological exam: Alert, Normal Gait, Oriented x3, Reflexes Normal - Psychiatric Exam Psychiatric exam: Normal Affect, Normal Mood - Skin Skin Exam: Normal Color Results - Vital Signs Recent Vital Signs: Last Vital Signs Temp 97.9 F 12/08/16 08:00 Pulse 86 12/08/16 08:31 Resp 11 L 12/08/16 08:31 BP 138/105 H 12/08/16 08:31 Pulse Ox 96 12/08/16 08:31 - Labs Result Diagrams: 12/08/16 06:24 12/08/16 06:24 Labs: Laboratory Results - last 24 hr 12/07/16 12/07/16 12/07/16 14:57 16:16 21:54 WBC RBC Hgb Hct MCV MCH MCHC RDW Plt Count MPV Neut % (Auto) Lymph % (Auto) Shannon % (Auto) Eos % (Auto) Baso % (Auto) Neut # Lymph # Shannon # Eos # Baso # Sodium Potassium Chloride Carbon Dioxide Anion Gap BUN Creatinine Est GFR ( Amer) Est GFR (Non-Af Amer) POC Glucose (mg/dL) 219 H 216 H Random Glucose Calcium Phosphorus Magnesium Total Bilirubin AST ALT Alkaline Phosphatase Total Protein Albumin Globulin Albumin/Globulin Ratio Blood Type O POSITIVE Antibody Screen Negative 12/08/16 12/08/16 12/08/16 06:24 06:24 07:30 WBC 7.4 RBC 4.25 L Hgb 13.7 Hct 40.2 MCV 94.6 H MCH 32.2 H MCHC 34.1 RDW 13.3 Plt Count 159 MPV 9.2 Neut % (Auto) 66.8 Lymph % (Auto) 20.5 Shannon % (Auto) 10.0 Eos % (Auto) 2.4 Baso % (Auto) 0.3 Neut # 4.9 Lymph # 1.5 Shannon # 0.7 Eos # 0.2 Baso # 0.0 Sodium 136 Potassium 3.6 Chloride 102 Carbon Dioxide 24 Anion Gap 14 BUN 18 Creatinine 0.7 L Est GFR ( Amer) > 60 Est GFR (Non-Af Amer) > 60 POC Glucose (mg/dL) 182 H Random Glucose 196 H Calcium 7.8 L Phosphorus 2.5 Magnesium 1.7 Total Bilirubin 0.8 AST 29 ALT 32 Alkaline Phosphatase 79 Total Protein 6.1 L Albumin 3.5 Globulin 2.7 Albumin/Globulin Ratio 1.3 Blood Type Antibody Screen - EKG Data EKG Interpreted by: Myself (ecg nsr mild non spcecific st changes) Assessment & Plan - Assessment and Plan (Free Text) Assessment: 1. CAD, but no anginal chest pain. pt is advised to continue outpatient meds. DAPT, statin. He is advised to seen alternative explanation of his chest pain ( known esophagits,anxiety). 2. pt has [employer], which my practice unfortunately does not take. In order to avoid a huge medical bills, pt is advised to f/u with a staffing analyst as an outpatient that takes his insurance
[2016-12-08] MEDS: Metoprolol Succinate 50 mg XL Tab PO SCH (10:15)
[2016-12-08] MEDS: Ranolazine 500 mg Extended Release Tablets PO SCH (17:48)
[2016-12-08] MEDS: Insulin Detemir 100 units/ml Vial (Levemir) SC SCH (21:39)
--- NOTE | 2016-12-09 07:55 | CARD ---
APPROVED REPORT EKG Measurement Heart [id number] <Conclusion> Normal sinus rhythm Septal infarct, age undetermined Abnormal ECG
[2016-12-09] MEDS: (Novolin R) Insulin Human Regular 100 units/ml vial SC SCH ×5 (08:30→21:36)
[2016-12-09] MEDS: Ranolazine 500 mg Extended Release Tablets PO SCH ×2 (10:22→18:17)
[2016-12-09] MEDS: Metoprolol Succinate 50 mg XL Tab PO SCH (10:22)
--- NOTE | 2016-12-09 10:38 | CP.PCM.PN ---
Subjective - Date & Time of Evaluation Date of Evaluation: 12/09/16 Time of Evaluation: 10:00 - Subjective Subjective: PGY2 Medicine Note - Dr. Lino's Service This 71 year old male with PMHx of CAD with [address] Wills, HTN , DMII, hyperlipidemia, BPH, legally blind - presents with angina. The patient describes the onset of substernal chest pressure which occurred at rest. He states symptoms began suddenly and became worse. He was diaphoretic. The EKG revealed NSR with anteroseptal ST segment abnormalities consistent with [place]. Code heart was activated 12/07/16. Patient also complains of a tooth-ache (R upper molar), for which he plans to see a dentist, as it has been on going for the last few weeks. Patient denies fever, chills, SOB, cough, abdominal pain, dysuria, or any additional complaints. PMD: Dr Emiliano Lino PMHx: CAD with [address] Wills, HTN, DMII, hyperlipidemia, BPH, legally blind PSHx: hernia repair, stent placement Family hx: father of [place] in 70's Mother had DM, other members at [facility] Social hx: past smoker of 5 years, no ETOH or drug use, lives alone. Allergies: morphine, Lexapro Objective - Vital Signs/Intake and Output Vital Signs (last 24 hours): Temp Pulse Resp BP Pulse Ox 98.0 F 74 20 177/93 H 96 12/09/16 07:45 12/09/16 10:21 12/09/16 07:45 12/09/16 10:21 12/09/16 07:45 Intake and Output: 12/09/16 12/09/16 06:59 18:59 Intake Total 240 Output Total 475 Balance -235 - Medications Medications: Current Medications Acetaminophen (Tylenol 325mg Tab) 650 mg PO Q6 PRN PRN Reason: pain Amoxicillin (Amoxil 500 Mg Cap) 500 mg PO Q8H [facility] Clopidogrel Bisulfate (Plavix) 75 mg PO DAILY [facility] Last Admin: 12/09/16 10:22 Dose: 75 mg Insulin Detemir (Levemir) 40 unit SC HS [facility] Last Admin: 12/08/16 21:39 Dose: 40 unit Insulin Human Regular (Novolin R) 0 unit SC ACHS [facility] PRN Reason: Protocol Last Admin: 12/09/16 08:30 Dose: 2 unit Isosorbide Mononitrate (Imdur) 30 mg PO DAILY PRN PRN Reason: chest pain Last Admin: 12/08/16 08:26 Dose: 30 mg Losartan Potassium (Cozaar) 50 mg PO DAILY [facility] Last Admin: 12/09/16 10:22 Dose: 50 mg Metoprolol Succinate (Toprol Xl) 50 mg PO DAILY [facility] Last Admin: 12/09/16 10:22 Dose: 50 mg Nitroglycerin (Nitrostat Sl Tab) 0.4 mg SL Q5M PRN PRN Reason: chest pain Last Admin: 12/08/16 07:10 Dose: 0.4 mg Ranolazine (Ranexa) 500 mg PO BID [facility] Last Admin: 12/09/16 10:22 Dose: 500 mg Rosuvastatin Calcium (Crestor) 10 mg PO HS [facility] Last Admin: 12/08/16 21:36 Dose: 10 mg Zolpidem Tartrate (Ambien) 5 mg PO HS PRN PRN Reason: Insomnia Last Admin: 12/08/16 23:07 Dose: 5 mg - Labs Labs: 12/08/16 06:24 12/08/16 06:24 PT 12.1 SECONDS (9.7-12.2) 12/07/16 14:56 INR 1.1 12/07/16 14:56 APTT 34 SECONDS (21-34) 12/07/16 14:56 - Additional Findings Additional findings: - Head Exam Head Exam: ATRAUMATIC - Eye Exam Eye Exam: EOMI Pupil Exam: NORMAL ACCOMODATION - ENT Exam ENT Exam: Mucous Membranes Moist - Note: poor dentition, R upper molar tooth ache with irritated gums. - Neck Exam Neck exam: Positive for: Normal Inspection - Respiratory Exam Respiratory Exam: Clear to Auscultation Bilateral - Cardiovascular Exam Cardiovascular Exam: REGULAR RHYTHM - GI/Abdominal Exam GI & Abdominal Exam: Normal Bowel Sounds - Exam External exam: NORMAL EXTERNAL EXAM - Extremities Exam Extremities exam: Positive for: normal inspection - Back Exam Back exam: NORMAL INSPECTION - Neurological Exam Neurological exam: Alert, Normal Gait, Oriented x3, Reflexes Normal - Psychiatric Exam Psychiatric exam: Normal Affect, Normal Mood - Skin Skin Exam: Normal Color Assessment and Plan - Assessment and Plan (Free Text) Assessment: STEMI (ST elevation myocardial infarction) -Troponin negative. - Cardiology consult- Dr. Bobby Oliveros, f/u recs - patient has a history of multivessel PCI, given symptoms and EKG abnormalities. - CAD, but no anginal chest pain. pt is advised to continue outpatient meds. DAPT, statin. - He is advised to seen alternative explanation of his chest pain (known esophagits,anxiety). - Cardiac cath performed with Dr. Ríos -> Consider addition of Ranexa 500 mg BID. Patent stents in LAD, LCx, mid RCA RPDA 30% in stent OM1 95%(small vessel) RPL 95% proximal (small vessel) LV: 50%. Status: Acute CAD -Continue Plavix 75 mg PO daily -Continue Crestor 10mg PO HS - Ranexa 500mg PO BID [facility] Tooth pain / Tooth Infection - Tylenol 650mg PO Q6H PRN, pain (mild) - Toradol 30mg IVP Q8H PRN, pain (moderate) - Amoxicillin 500mg PO Q8H [facility] HTN -Imdur 30mg PO qd PRN -Losartan 50mg PO qd -Metoprolol XL 50mg PO qd -Nitroglycerin 0.4mg SL Q5M PRN DM -Continue home dose of Levemir 40 U HS -regular accuchecks -insulin sliding scale protocol Prophylactic measures SCDs Protonix 40mg PO daily Ambien 5mg PO HS PRN
[2016-12-09] MEDS: Insulin Detemir 100 units/ml Vial (Levemir) SC SCH (21:34)
[2016-12-10] MEDS: (Novolin R) Insulin Human Regular 100 units/ml vial SC SCH ×4 (07:51→21:41)
[2016-12-10 08:00] LABS: BASO % 0.4 % (0.0-2.0); EOS # 0.3 K/uL (0.0-0.7); EOS % 4.1 % (0.0-4.0); LYMPH # 1.6 K/uL (1.0-4.3); LYMPH % 20.2 % (20.0-40.0); MEAN CELL VOLUME 94.2 fL (80.0-94.0); MEAN CORPUSCULAR HEMOGLOBIN 32.1 pg (27.0-31.0); MEAN PLATELET VOLUME 8.9 fL (7.2-11.7); MONO # 0.8 K/uL (0.0-0.8); MONO % 9.7 % (0.0-10.0); RED CELL DISTRIBUTION WIDTH 13.7 % (11.5-14.5); WHITE BLOOD COUNT 8.1 K/uL (4.8-10.8)
[2016-12-10 08:17] LABS: CHLORIDE 106 mmol/L (98-107); POTASSIUM 3.6 mmol/L (3.6-5.2); SODIUM 139 mmol/L (132-148)
[2016-12-10 08:19] LABS: AST/SGOT 30 U/L (17-59); BILIRUBIN,TOTAL 0.7 mg/dL (0.2-1.3); CARBON DIOXIDE 22 mmol/L (22-30); GFR AFRICAN-AMERICAN > 60
[2016-12-10 08:20] LABS: ALB/GLOB RATIO 1.2 (1.0-2.1); ALKALINE PHOSPHATASE 77 U/L (38-126); ALT/SGPT 27 U/L (21-72); BLOOD UREA NITROGEN 16 mg/dL (9-20); CALCIUM 8.4 mg/dl (8.6-10.4); GLUCOSE,RANDOM 103 mg/dL (75-110); MAGNESIUM 1.9 mg/dL (1.6-2.3); PHOSPHOROUS 3.2 mg/dL (2.5-4.5); TOTAL PROTEIN 6.7 g/dL (6.3-8.3)
[2016-12-10] MEDS: Ranolazine 500 mg Extended Release Tablets PO SCH ×2 (11:28→18:47)
[2016-12-10] MEDS: Metoprolol Succinate 50 mg XL Tab PO SCH (11:28)
--- NOTE | 2016-12-10 16:35 | CP.PCM.PN ---
Subjective - Date & Time of Evaluation Date of Evaluation: 12/10/16 Time of Evaluation: 09:30 - Subjective Subjective: PGY2 Medicine Progress note- Dr. Lino's service Patient seen and examined. Patient states he still has same chest pressure he has had for 8 months. Patient states he is reassured that cardiac catheterization did not show blockages. Patient will need outpatient cardiology followup. Objective - Vital Signs/Intake and Output Vital Signs (last 24 hours): Temp Pulse Resp BP Pulse Ox 97.9 F 63 20 147/76 97 12/10/16 08:39 12/10/16 12:00 12/10/16 08:39 12/10/16 11:27 12/10/16 08:39 Intake and Output: 12/10/16 12/10/16 06:59 18:59 Intake Total 500 Balance 500 - Medications Medications: Current Medications Acetaminophen (Tylenol 325mg Tab) 650 mg PO Q6 PRN PRN Reason: Pain, Mild (1-3) Last Admin: 12/09/16 21:33 Dose: 650 mg Amoxicillin (Amoxil 500 Mg Cap) 500 mg PO Q8H [facility] Last Admin: 12/10/16 12:30 Dose: 500 mg Clopidogrel Bisulfate (Plavix) 75 mg PO DAILY [facility] Last Admin: 12/10/16 11:28 Dose: 75 mg Famotidine (Pepcid) 20 mg PO BID [facility] Last Admin: 12/10/16 11:28 Dose: 20 mg Insulin Detemir (Levemir) 40 unit SC HS [facility] Last Admin: 12/09/16 21:34 Dose: 40 unit Insulin Human Regular (Novolin R) 0 unit SC ACHS [facility] PRN Reason: Protocol Last Admin: 12/10/16 12:51 Dose: 2 unit Isosorbide Mononitrate (Imdur) 30 mg PO DAILY PRN PRN Reason: chest pain Last Admin: 12/08/16 08:26 Dose: 30 mg Ketorolac Tromethamine (Toradol) 30 mg IVP Q8 PRN PRN Reason: Pain, moderate (4-7) Losartan Potassium (Cozaar) 50 mg PO DAILY [facility] Last Admin: 12/10/16 11:28 Dose: 50 mg Metoprolol Succinate (Toprol Xl) 50 mg PO DAILY [facility] Last Admin: 12/10/16 11:28 Dose: 50 mg Nitroglycerin (Nitrostat Sl Tab) 0.4 mg SL Q5M PRN PRN Reason: chest pain Last Admin: 12/08/16 07:10 Dose: 0.4 mg Ranolazine (Ranexa) 500 mg PO BID [facility] Last Admin: 12/10/16 11:28 Dose: 500 mg Rosuvastatin Calcium (Crestor) 10 mg PO HS [facility] Last Admin: 12/09/16 21:33 Dose: 10 mg Zolpidem Tartrate (Ambien) 5 mg PO HS PRN PRN Reason: Insomnia Last Admin: 12/09/16 21:33 Dose: 5 mg - Labs Labs: 12/10/16 07:50 12/10/16 07:50 PT 12.1 SECONDS (9.7-12.2) 12/07/16 14:56 INR 1.1 12/07/16 14:56 APTT 34 SECONDS (21-34) 12/07/16 14:56 - Constitutional Appears: Non-toxic, No Acute Distress - Head Exam Head Exam: ATRAUMATIC, NORMOCEPHALIC - Eye Exam Eye Exam: EOMI - ENT Exam ENT Exam: Mucous Membranes Moist - Respiratory Exam Respiratory Exam: Clear to Ausculation Bilateral, NORMAL BREATHING PATTERN - Cardiovascular Exam Cardiovascular Exam: +S1, +S2 - GI/Abdominal Exam GI & Abdominal Exam: Soft, Normal Bowel Sounds - Extremities Exam Extremities Exam: Normal Inspection. absent: Pedal Edema - Neurological Exam Neurological Exam: Alert, Awake - Psychiatric Exam Psychiatric exam: Normal Affect - Skin Skin Exam: Dry, Warm Assessment and Plan - Assessment and Plan (Free Text) Assessment: STEMI (ST elevation myocardial infarction) -Troponin negative. - Cardiology consult- Dr. Bobby Oliveros, f/u recs - patient has a history of multivessel PCI, given symptoms and EKG abnormalities. - CAD, but no anginal chest pain. pt is advised to continue outpatient meds. DAPT, statin. - He is advised to seen alternative explanation of his chest pain (known esophagits,anxiety). - Cardiac cath performed with Dr. Ríos -> Consider addition of Ranexa 500 mg BID. Patent stents in LAD, LCx, mid RCA RPDA 30% in stent OM1 95%(small vessel) RPL 95% proximal (small vessel) LV: 50%. Patient to follow up with Dr. Ríos on discharge Status: Acute CAD -Continue Plavix 75 mg PO daily -Continue Crestor 10mg PO HS - Ranexa 500mg PO BID [facility] Tooth pain / Tooth Infection - Tylenol 650mg PO Q6H PRN, pain (mild) - Toradol 30mg IVP Q8H PRN, pain (moderate) - Continue Amoxicillin 500mg PO Q8H [facility] HTN -Imdur 30mg PO qd PRN -Losartan 50mg PO qd -Metoprolol XL 50mg PO qd -Nitroglycerin 0.4mg SL Q5M PRN DM -Continue home dose of Levemir 40 U HS -regular accuchecks -insulin sliding scale protocol Prophylactic measures SCDs Protonix 40mg PO daily Ambien 5mg PO HS PRN PT eval pending/ discharge planning
[2016-12-10] MEDS: Insulin Detemir 100 units/ml Vial (Levemir) SC SCH (22:24)
[2016-12-11 00:03] VITALS: RESP 20
--- NOTE | 2016-12-11 06:31 | CP.PCM.PN ---
Subjective - Date & Time of Evaluation Date of Evaluation: 12/11/16 Time of Evaluation: 06:29 - Subjective Subjective: PGY2 Medicine Note- Dr. Monteiro's Service: Patient seen and examined. Patient admits to episode of chest pain overnight that resolved with administration of nitro and ativan. Patient states that tooth pain has resolved with antibiotic therapy. Objective - Vital Signs/Intake and Output Vital Signs (last 24 hours): Temp Pulse Resp BP Pulse Ox 98.1 F 64 20 134/70 95 12/10/16 23:00 12/10/16 23:00 12/10/16 23:00 12/10/16 23:00 12/10/16 23:00 Intake and Output: 12/10/16 12/11/16 18:59 06:59 Intake Total 500 Balance 500 - Medications Medications: Current Medications Acetaminophen (Tylenol 325mg Tab) 650 mg PO Q6 PRN PRN Reason: Pain, Mild (1-3) Last Admin: 12/09/16 21:33 Dose: 650 mg Amoxicillin (Amoxil 500 Mg Cap) 500 mg PO Q8H [facility] Last Admin: 12/11/16 03:00 Dose: 500 mg Clopidogrel Bisulfate (Plavix) 75 mg PO DAILY [facility] Last Admin: 12/10/16 11:28 Dose: 75 mg Famotidine (Pepcid) 20 mg PO BID [facility] Last Admin: 12/10/16 18:47 Dose: 20 mg Insulin Detemir (Levemir) 40 unit SC HS [facility] Last Admin: 12/10/16 22:24 Dose: 40 unit Insulin Human Regular (Novolin R) 0 unit SC ACHS [facility] PRN Reason: Protocol Last Admin: 12/10/16 21:41 Dose: Not Given Isosorbide Mononitrate (Imdur) 30 mg PO DAILY PRN PRN Reason: chest pain Last Admin: 12/08/16 08:26 Dose: 30 mg Ketorolac Tromethamine (Toradol) 30 mg IVP Q8 PRN PRN Reason: Pain, moderate (4-7) Lorazepam (Ativan) 0.5 mg PO HS PRN PRN Reason: Anxiety Losartan Potassium (Cozaar) 50 mg PO DAILY [facility] Last Admin: 12/10/16 11:28 Dose: 50 mg Metoprolol Succinate (Toprol Xl) 50 mg PO DAILY [facility] Last Admin: 12/10/16 11:28 Dose: 50 mg Nitroglycerin (Nitrostat Sl Tab) 0.4 mg SL Q5M PRN PRN Reason: chest pain Last Admin: 12/10/16 22:36 Dose: 0.4 mg Ranolazine (Ranexa) 500 mg PO BID [facility] Last Admin: 12/10/16 18:47 Dose: 500 mg Rosuvastatin Calcium (Crestor) 10 mg PO HS [facility] Last Admin: 12/10/16 22:28 Dose: 10 mg Zolpidem Tartrate (Ambien) 5 mg PO HS PRN PRN Reason: Insomnia Last Admin: 12/09/16 21:33 Dose: 5 mg - Labs Labs: 12/10/16 07:50 12/10/16 07:50 PT 12.1 SECONDS (9.7-12.2) 12/07/16 14:56 INR 1.1 12/07/16 14:56 APTT 34 SECONDS (21-34) 12/07/16 14:56 - Constitutional Appears: Non-toxic, No Acute Distress - Head Exam Head Exam: ATRAUMATIC, NORMOCEPHALIC - Eye Exam Eye Exam: EOMI - ENT Exam ENT Exam: Mucous Membranes Moist - Respiratory Exam Respiratory Exam: Clear to Ausculation Bilateral, NORMAL BREATHING PATTERN - Cardiovascular Exam Cardiovascular Exam: +S1, +S2 - GI/Abdominal Exam GI & Abdominal Exam: Soft, Normal Bowel Sounds. absent: Tenderness - Extremities Exam Extremities Exam: Normal Inspection. absent: Pedal Edema - Neurological Exam Neurological Exam: Alert, Awake - Psychiatric Exam Psychiatric exam: Normal Affect - Skin Skin Exam: Dry, Warm Assessment and Plan - Assessment and Plan (Free Text) Assessment: STEMI (ST elevation myocardial infarction) -Troponin negative. - Cardiology consult- Dr. Bobby Oliveros, f/u recs - patient has a history of multivessel PCI, given symptoms and EKG abnormalities. - CAD, but no anginal chest pain. pt is advised to continue outpatient meds. DAPT, statin. - He is advised to seen alternative explanation of his chest pain (known esophagits,anxiety). - Cardiac cath performed with Dr. Ríos -> Consider addition of Ranexa 500 mg BID. Patent stents in LAD, LCx, mid RCA RPDA 30% in stent OM1 95%(small vessel) RPL 95% proximal (small vessel) LV: 50%. Patient to follow up with Dr. Ríos on discharge Status: Acute CAD -Continue Plavix 75 mg PO daily -Continue Crestor 10mg PO HS - Ranexa 500mg PO BID [facility] Tooth pain / Tooth Infection - Tylenol 650mg PO Q6H PRN, pain (mild) - Toradol 30mg IVP Q8H PRN, pain (moderate) - Continue Amoxicillin 500mg PO Q8H [facility] HTN -Imdur 30mg PO qd PRN -Losartan 50mg PO qd -Metoprolol XL 50mg PO qd -Nitroglycerin 0.4mg SL Q5M PRN DM -Continue home dose of Levemir 40 U HS -regular accuchecks -insulin sliding scale protocol Prophylactic measures SCDs Protonix 40mg PO daily Ambien 5mg PO HS PRN PT eval pending/ discharge planning Patient is stable for discharge home per Dr. Lino. Patient is being discharged with the following new medications: Ranexa 500mg by mouth twice a day , Toprol XL 50mg by mouth daily, losartan 50mg by mouth daily, Amoxicillin 500mg three times a day for 7 days, ibuprofen 600mg by mouth every 6 hours as needed for pain. Patient will need to follow up with a dentist for his gum pain. Patient is to stop taking his home medication of Enalapril and Toprol XL 25mg. Patient is to follow up with Dr. Lino within one week and follow up with Dr. Ríos within one week. Patient is to return to the ED if his symptoms reoccur or worsen.
[2016-12-11 07:28] LABS: BASO % 0.3 % (0.0-2.0); EOS # 0.3 K/uL (0.0-0.7); EOS % 4.3 % (0.0-4.0); HEMATOCRIT 41.1 % (35.0-51.0); LYMPH # 1.5 K/uL (1.0-4.3); LYMPH % 19.7 % (20.0-40.0); MEAN CELL VOLUME 94.2 fL (80.0-94.0); MEAN CORPUSCULAR HEMOGLOBIN 32.4 pg (27.0-31.0); MEAN CORPUSCULAR HGB CONC 34.4 g/dL (33.0-37.0); MEAN PLATELET VOLUME 8.8 fL (7.2-11.7); MONO # 0.8 K/uL (0.0-0.8); MONO % 10.9 % (0.0-10.0); RED CELL DISTRIBUTION WIDTH 14.1 % (11.5-14.5); WHITE BLOOD COUNT 7.8 K/uL (4.8-10.8)
[2016-12-11 07:29] LABS: CHLORIDE 102 mmol/L (98-107)
[2016-12-11 07:30] LABS: POTASSIUM 4.3 mmol/L (3.6-5.2); SODIUM 140 mmol/L (132-148)
[2016-12-11 07:32] LABS: CARBON DIOXIDE 29 mmol/L (22-30); GFR AFRICAN-AMERICAN > 60
[2016-12-11 07:33] LABS: ALB/GLOB RATIO 1.3 (1.0-2.1); ALKALINE PHOSPHATASE 92 U/L (38-126); ALT/SGPT 32 U/L (21-72); AST/SGOT 26 U/L (17-59); BILIRUBIN,TOTAL 0.6 mg/dL (0.2-1.3); BLOOD UREA NITROGEN 17 mg/dL (9-20); CALCIUM 8.9 mg/dl (8.6-10.4); GLUCOSE,RANDOM 196 mg/dL (75-110); PHOSPHOROUS 3.2 mg/dL (2.5-4.5); TOTAL PROTEIN 6.7 g/dL (6.3-8.3)
[2016-12-11 08:28] VITALS: TEMP 97.7
[2016-12-11] MEDS: (Novolin R) Insulin Human Regular 100 units/ml vial SC SCH ×3 (09:09→17:16)
[2016-12-11] MEDS: Ranolazine 500 mg Extended Release Tablets PO SCH ×2 (09:10→17:16)
[2016-12-11] MEDS: Metoprolol Succinate 50 mg XL Tab PO SCH (09:10)
[2016-12-11 17:26] VITALS: BP 169/76; PULSE 58; O2SAT 98
--- NOTE | 2016-12-12 10:42 | DS ---
A 71-year-old male admitted to hospital with chief complaint of chest pain. Code heart was called. Cardiac cath was done; had patent stents. Bed rest, supportive care. Continue treatment. Alondra Moreira MD cc: [phone] TT: 12/11/2016 11:37:06 mn
--- NOTE | 2016-12-12 10:51 | CARD ---
APPROVED REPORT EKG Measurement Heart [id number] <Conclusion> Normal sinus rhythm Septal infarct, age undetermined ST & T wave abnormality, consider lateral ischemia Abnormal ECG
--- NOTE | 2016-12-12 12:06 | PQF CHESTP ---
This form is a permanent part of the medical record TO Alondra Lino MD Patient was admitted with chest pain, history of HTN/CRF/CHF, CAD , Hyperlipidemia, hypercholesterolemia, Dm, history of PTCA with stent. Cardiac catheterization was done on 12/07/[address] Dwight Wesley which revealed normal/patent stent, normal coronoary arteries. Negative Troponin on admission however there was abnormal findings consistent with STEMI. Please specify the etiology of patients chest pain, if possible. Thank you There is clinical documentation of CHEST PAIN with evaluation, treatment, and / or monitoring present in the medical record. Please clarify the possible / probable cause of CHEST PAIN. Source Documentation: Chart Location: [] Progress Notes [] Consults [] Radiology Results Date: [] Date: [] Date:[] ED Records: [] H&P: [] Other: [] PHYSICIAN RESPONSE CAUSE OF CHEST PAIN: PLease Check [] Documentation: [] Musculoskeletal Chest Pain [] Costochondritis [] Gastroesophageal Reflux Disease (GERD) [] Acute Gastritis [] Other [] [] Unknown [] In responding to this query, please exercise your independent professional judgment. The fact that a question is asked does not imply that any particular answer is desired or expected. Thank you for your clarification on this documentation. If you have any questions please call:[ ] * Thank you, [ Yael Rice, [facility] ] mobile lounge driver or operator [email or web address]
== END 2016-12-11 19:55 | disposition home or self-care (01) | DRG 287 ==
LOC: C.ER 14:30 → C.9E 14:56 → C.9I 15:50 → C.5T 12-09 06:08
PROVIDERS: ADMIT Internal Medicine Pulmonary Disease; ATTEND Internal Medicine Pulmonary Disease
PROC: 4A023N7 Measurement of Cardiac Sampling and Pressure, Left Heart, Percutaneous Approach (ICD-10-PCS; principal; 2016-12-07)
PROC: B201YZZ Plain Radiography of Multiple Coronary Arteries using Other Contrast (ICD-10-PCS; 2016-12-07)
PROC: B205YZZ Plain Radiography of Left Heart using Other Contrast (ICD-10-PCS; 2016-12-07)
DX: I25.110 Atherosclerotic heart disease of native coronary artery with unstable angina pectoris (principal); I13.0 Hypertensive heart and chronic kidney disease with heart failure and stage 1 through stage 4 chronic kidney disease, or unspecified chronic kidney disease; E11.22 Type 2 diabetes mellitus with diabetic chronic kidney disease; I50.9 Heart failure, unspecified; F41.9 Anxiety disorder, unspecified; E78.00 Pure hypercholesterolemia, unspecified; N40.0 Benign prostatic hyperplasia without lower urinary tract symptoms; N18.9 Chronic kidney disease, unspecified; Z95.5 Presence of coronary angioplasty implant and graft; H54.8 Legal blindness, as defined in USA; Z79.4 Long term (current) use of insulin; Z87.891 Personal history of nicotine dependence; K20.9 Esophagitis, unspecified; G47.00 Insomnia, unspecified